=== PATIENT | male | born 1985 | race Caucasian/White ===

== ENCOUNTER 2022-06-04 20:14 | Observation (INO) | payer BC, MEDICAID, SELFPAY ==
[2022-06-04 20:42] VITALS: BP 158/90; PULSE 104; RESP 17; TEMP 37; O2SAT 94
--- NOTE | 2022-06-04 23:19 | W.ED.ABDPA2 ---
HPI - Abdominal Pain General: Chief Complaint: Abdominal Pain Stated Complaint: Right Side Pain Extreme Time Seen by Provider: 06/04/22 23:18 History of Present Illness: 37-year-old male patient comes in today with complaints of right flank pain radiating to the right lower quadrant of his abdomen. Patient reports pain and discomfort started this afternoon. Patient reports no fever. Patient does had episodes of nausea and vomiting. Patient denies any abnormal bowel movements or difficulty of urination. Patient appears in moderate to severe pain. Patient appears nontoxic. Associated Symptoms: Reports nausea and vomiting; Denies fever(s) Review of Systems Const: Denies: fever(s) Resp: Denies: dyspnea GI: Reports: abdominal pain, nausea and vomiting : Reports: flank pain PFS ED PFSH: Medical History (Updated 06/05/22 @ 00:37 by SHAISTA Meade) Autistic disorder Chronic post-traumatic stress disorder Generalized anxiety disorder Major depressive disorder, recurrent episode, moderate with anxious distress Psychiatric care Social History (Updated 11/01/19 @ 13:31 by Grazyna Valente RN) Smoking and tobacco status: never smoked Physical Exam Const: COMMON NORMALS: alert HENMT: COMMON NORMALS: normocephalic HEAD & SCALP: normocephalic THROAT: posterior oropharynx normal Neck/C-Spine: COMMON NORMALS: full ROM Resp: COMMON NORMALS: normal respiratory effort and clear to auscultation bilaterally AUSCULTATION: clear to auscultation bilaterally Cardio: COMMON NORMALS: regular rate and regular rhythm RATE: regular rate RHYTHM: regular rhythm GI: COMMON NORMALS: Soft to palpation AUSCULTATION: Yes normoactive bowel sounds PALPATION: Yes Soft to palpation and Yes Tenderness to palpation present (GI) Details: RLQ : BLADDER/KIDNEY EXAM: Yes CVA tenderness on the right Back/Pelvis: GENERAL BACK: Yes CVA tenderness Extremity: COMMON NORMALS: normal to inspection Neuro: SENSORIUM/ORIENTATION: Yes alert Skin: COMMON NORMALS: turgor normal GENERAL SKIN EXAM: turgor normal Course ED course: 1230, CT report come back positive for an acute appendicitis without perforation. I reviewed this with patient who agreed to plan with me contacting the surgeon at this facility for further evaluation and treatment. I discussed with Dr. Akers who agreed to plan. 1240, discussed patient with Dr. Cheung who agreed to plan for admission. Vital Signs: Vital signs: Vital Signs Temperature 98.6 F 06/04/22 20:42 Pulse Rate 104 H 06/04/22 20:42 Respiratory Rate 17 06/04/22 20:42 Blood Pressure 158/90 06/04/22 20:42 Pulse Oximetry 94 06/04/22 20:42 Oxygen Delivery Me thod 06/04/22 20:42 MDM - Abdominal Pain Medical Decision Making 37-year-old male patient comes in today with complaints of nausea and vomiting with right lower quadrant abdominal pain starting early this morning. Patient reports worsening symptoms throughout the day. Patient's been unable to hold fluids down. Patient appears unwell but not toxic. Abdomen is soft with some periumbilical tenderness, rebound tenderness, and right CVA tenderness. Differential diagnosis includes renal calculi, appendicitis, pyelonephritis. CT of the abdomen pelvis noted an acute appendicitis. Reviewed with Dr. Akers who recommended consult with surgery. Patient was given 3.375 g of Zosyn. And treated with morphine and ketorolac for pain. Patient was also given 1 L of IV fluids and 4 mg of Zofran for nausea and vomiting. Lab Data Labs/Radiology: Radiology Impressions Abdomen/Pelvis CT 06/04/22 23:30 IMPRESSION: Acute appendicitis. No sign of perforation. ADDENDUM: 06/05/22 0027 THIS REPORT CONTAINS FINDINGS THAT MAY BE CRITICAL TO PATIENT CARE. The findings were verbally communicated via telephone conference with MIRIAM NUGENT at 12:26 AM CDT on 06/05/2022. The findings were acknowledged and understood. Discharge Plan Discharge Patient Disposition: Placed in Observation Clinical Impression: Acute appendicitis Coding Level of Care Code ED Survey Technician for Bruce Fwd Exam Comprehensive
--- NOTE | 2022-06-04 23:30 | CTR_ITS ---
PROCEDURE INFORMATION: Exam: CT Abdomen And Pelvis Without Contrast Exam date and time: 06/04/2022 11:40 PM Age: 37 years old Clinical indication: Abdominal pain; Right; Patient HX: C/O RT flank pain; Additional info: Right flank/abd pain TECHNIQUE: Imaging protocol: Computed tomography of the abdomen and pelvis without contrast. Radiation optimization: All CT scans at this facility use at least one of these dose optimization techniques: automated exposure control; mA and/or kV adjustment per patient size (includes targeted exams where dose is matched to clinical indication); or iterative reconstruction. COMPARISON: No relevant prior studies available. RADIATION DOSE METRICS: Total DLP (mGy-cm): 1067.33 FINDINGS: Lungs: Lung bases are clear. Liver: The liver is normal. Gallbladder and bile ducts: There is high attenuation material within the gallbladder lumen consistent with sludge. There is no intrahepatic or extrahepatic bile duct dilation. Pancreas: The pancreas is unremarkable. Spleen: The spleen is unremarkable. Adrenal glands: The adrenal glands are unremarkable. Kidneys and ureters: The kidneys are unremarkable. No hydronephrosis or stones. No ureteral dilation. Stomach and bowel: The stomach is decompressed, preventing meaningful evaluation of wall thickness. The small bowel is nondilated. The colon is unremarkable. Appendix: The appendix is dilated and fluid-filled measuring up to 12 mm diameter. There is an appendicolith at the base. There is periappendiceal edema and fascial thickening. There is no extraluminal gas or fluid collection. Intraperitoneal space: There is no free air or significant intraperitoneal free fluid. Vasculature: The aorta is unremarkable. There is no aneurysm. Lymph nodes: There is no lymphadenopathy in the retroperitoneum, mesentery, pelvis or inguinal regions. Urinary bladder: The urinary bladder is unremarkable. Reproductive: The prostate and seminal vesicles are unremarkable. Bones/joints: Bones are unremarkable. Soft tissues: The abdominal wall is intact. CT/CT kidney stone [id number] IMPRESSION: Acute appendicitis. No sign of perforation.
[2022-06-05] VITALS (20 sets, daily range): BP systolic 89–144; BP diastolic 53–87; PULSE 83–124; RESP 16–20; TEMP 36.4–37.4; O2SAT 87–99; BMI 32.1
[2022-06-05] MEDS: ondansetron 2 mg/ML SDV 2 mL 4 MG IVP
[2022-06-05] MEDS: morphine 4 mg/mL SDV 1 mL IVP
[2022-06-05] MEDS: ketorolac 30 mg/mL INJ 15 MG IVP
[2022-06-05] MEDS: sodium chloride 0.9% 1,000 ML 999 ML IV (01:17)
[2022-06-05] MEDS: piperacillin-tazobactam 3.375 GM in sodium chloride 0.9% (plus) 50 ML IV ×2 (01:17→16:52)
[2022-06-05 05:50] LABS: Basophils % 0.2 %; Eosinophils # 0.1 10^3/uL (0.0-0.8); Eosinophils % 0.6 %; Hematocrit 45.6 % (42.0-52.0); Hemoglobin 14.8 g/dL (11.7-16.6); Lymphocytes # 1.6 10^3/uL (0.8-4.8); Lymphocytes % 9.2 %; Mean Corpuscular HGB Conc 32.5 g/dL (30.0-36.0); Mean Corpuscular Hemoglobin 29.3 pg (28.0-34.0); Mean Corpuscular Volume 90.3 fl (80-94); Mean Platelet Volume 10.6 fL (7.4-10.4); Monocytes # 0.8 10^3/uL (0.2-0.9); Monocytes % 4.9 %; Neutrophils # 14.53 10^3/uL (1.8-7.7); Neutrophils % 84.5 %; Nucleated Red Blood Cells % 0 %; Platelet Count 208 10^3/cmm (130-400); Red Blood Count 5.05 10^6/uL (4.1-5.3); Red Cell Distribution Width 13.1 % (12.1-15.1); White Blood Count 17.2 10^3/uL (4.0-10.0)
[2022-06-05 05:50] LABS: Add Urine Microscopic? NO; Charge for UA Resulting for Rev
[2022-06-05 05:53] LABS: Bilirubin Urine Neg (Negative); Blood Urine Neg (Negative); Glucose Urine UA Norm (Normal); Ketones Urine Negative (Negative); Leukocyte Esterase Urine Negative (Negative); Nitrate Urine Negative (Negative); Protein Urine Neg (Negative); Urine Appearance Clear (CLEAR); Urine Color Yellow (Yellow); Urobilinogen Urine Norm (Negative); pH Urine 6 (5-7)
[2022-06-05 05:56] LABS: Alanine Aminotransferase 26 U/L (0-41); Albumin Level 4.4 g/dL (3.5-5.2); Alkaline Phosphatase 75 U/L (40-130); Blood Urea Nitrogen 8 mg/dL (6-20); Calcium 9.4 mg/dL (8.5-10.5); Carbon Dioxide 24 mmol/L (22-29); Chloride 100 mmol/L (98-107); Globulin 2.4 g/dL (1.3-4.6); Glomerular Filtration Rate 84.5 mL/min (90-130); Glucose 101 mg/dL (65-115); Lipase 24 U/L (13-60); Osmolality Calculated 282 mOsm/kg (285-295); Sodium 137 mmol/L (136-145); Total Bilirubin 0.7 mg/dL (0.15-1.2); Total Protein 6.8 g/dL (6.6-8.7)
[2022-06-05 06:03] LABS: Anion Gap 17.6 (5-19); Potassium 4.6 mmol/L (3.5-5.1)
[2022-06-05 06:04] LABS: Aspartate Amino Transferase 23 U/L (0-40)
[2022-06-05] MEDS: HYDROmorphone 1 mg/mL INJ 1 mL IVP (06:08)
--- NOTE | 2022-06-05 07:27 | P.ANESASSM_ITS ---
Pre-Anesthetic Assessment Height/Weight: Temp Pulse Resp BP Pulse Ox O2 Del Method 97.5 F L 107 H 18 138/80 99 06/05/22 03:59 06/05/22 03:59 06/05/22 06:08 06/05/22 05:56 06/05/22 03:59 06/05/22 03:59 Operation Date: 06/05/22 12:05 Proposed Procedures p Laparoscopic Appendectomy(Not Applicable) - Yung Cheung DO Familial anesthetic complications: None Was Beta Drew taken within 24 hours: N/A Was Clonidine taken within 24 hours: N/A Last intake: > 8hrs Social No alcohol and No tobacco Exam alert, oriented x 3, clear to auscultation bilaterally and regular rate & rhythm Airway Mallampati: Class III Dentition: full Neuropsych Anxiety and Depression Anesthetic Plan ASA status: 2 Anesthesia: General Risk of > 500 ml blood loss (7ml/kg in children): No Medications/Allergies Home Medications Medication Instructions Recorded Confirmed Last Taken Type finasteride 1 mg tablet 1 mg PO DAILY 02/01/21 01/30/22 Unknown History bupropion HCl 150 mg 24 hr tablet, 150 mg PO QAM #90 tabs 11/07/21 01/30/22 Unknown Rx extended release (Wellbutrin XL) sertraline 100 mg tablet (Zoloft) 200 mg PO QAM #180 tabs 11/07/21 01/30/22 Unknown Rx Allergies Allergy/AdvReac Type Severity Reaction Status Date / Time No Known Allergies Allergy Verified 11/01/19 13:28 Current Medications Generic Name Dose Route Start Last Admin Trade Name Freq PRN Reason Stop Dose Admin Hydromorphone HCl 1 mg 06/05/22 05:59 06/05/22 06:08 Hydromorphone 1 Mg/Ml Inj 1 Ml IVP 1 mg Q4H PRN Administration PAIN PFSH Anesthesia Medical History (Updated 06/05/22 @ 00:37 by SHAISTA Meade) Autistic disorder Chronic post-traumatic stress disorder Generalized anxiety disorder Major depressive disorder, recurrent episode, moderate with anxious distress Psychiatric care Social History (Updated 11/01/19 @ 13:31 by Grazyna Valente RN) Smoking and tobacco status: never smoked Data Anesthesia : 06/05/22 05:42 06/05/22 05:07 Short CBC 06/05/22 Range/Units 05:42 WBC 17.2 H (4.0-10.0) 10^3/uL Hgb 14.8 (11.7-16.6) g/dL Hct 45.6 (42.0-52.0) % MCV 90.3 (80-94) fl Plt Count 208 (130-400) 10^3/cmm Neut % (Auto) 84.5 % Neut # (Auto) 14.53 H (1.8-7.7) 10^3/uL BMP 06/05/22 05:07 Sodium 137 Potassium 4.6 Chloride 100 Carbon Dioxide 24 BUN 8 Creatinine 1.0 Glucose 101 Calcium 9.4 Liver Function 06/05/22 Range/Units 05:07 Total Bilirubin 0.7 (0.15-1.2) mg/dL AST 23 (0-40) U/L ALT 26 (0-41) U/L Alkaline Phosphatase 75 (40-130) U/L Albumin 4.4 (3.5-5.2) g/dL Urine 06/05/22 Range/Units 05:40 Urine Color Yellow (Yellow) Urine Appearance Clear (CLEAR) Urine pH 6 (5-7) Ur Specific [place] 1.010 (1.005-1.030) Urine Protein Neg (Negative) Urine Glucose (UA) Norm (Normal) Urine Ketones Negative (Negative) Urine Nitrate Negative (Negative) Urine Bilirubin Neg (Negative) Ur Leukocyte Esterase Negative (Negative) Cardiac Studies: No Data to Display
[2022-06-05] MEDS: sodium chloride 0.9% 1,000 ML 30 ML IV (07:38)
--- NOTE | 2022-06-05 08:06 | PM.HP ---
Providers/Chief Complaint Admitting Physician: Yung Cheung DO Primary Care Provider: Jhoan Francisco MD Chief Complaint: Right Side Pain Extreme History of Present Illness Godfrey Vázquez is a 37 year old male presents to the hospital with 1 day history of abdominal pain. He began with sharp periumbilical pain that then moved to the right lower quadrant. The pain does not radiate. Palpation makes the pain worse. Nothing makes pain better. He does report nausea and emesis but denies hematemesis. Denies diarrhea or constipation. Denies hematochezia and/or melena. He does report chills. Review of Systems General: Reports: 10 or more systems reviewed and unremarkable except in HPI and below Medications/Allergies Home Medications Medication Instructions Recorded Confirmed Last Taken Type finasteride 1 mg tablet 1 mg PO DAILY 02/01/21 01/30/22 06/04/22 06:00 History bupropion HCl 150 mg 24 hr tablet, 150 mg PO QAM #90 tabs 11/07/21 06/05/22 06/04/22 06:00 Rx extended release (Wellbutrin XL) sertraline 100 mg tablet (Zoloft) 200 mg PO QAM #180 tabs 11/07/21 06/05/22 06/04/22 06:00 Rx Allergies Allergy/AdvReac Type Severity Reaction Status Date / Time No Known Allergies Allergy Verified 06/05/22 07:30 PFSH Acute PFSH: Medical History Autistic disorder Chronic post-traumatic stress disorder Generalized anxiety disorder Major depressive disorder, recurrent episode, moderate with anxious distress Psychiatric care Social History Smoking and tobacco status: never smoked Vitals/I&O/Wt Last Vital Signs Temp 99.4 F 06/05/22 07:34 Pulse 124 H 06/05/22 07:34 Resp 18 06/05/22 07:34 BP 126/85 06/05/22 07:34 Pulse Ox 93 06/05/22 07:34 O2 Del Method 06/05/22 07:45 06/04/22 06/05/22 06/05/22 22:59 06:59 14:59 Intake Total 1000 / 1000 Balance 1000 / 1000 Weight last 48 hrs Weight 230 lb Physical Exam Narrative: General : Patient is well developed , no acute distress, oriented x3 Head : Normal cephalic, a-traumatic. Ears : Pinnae and external canal are normal. Hearing is normal. Eyes : PERRLA, Sclera and injection are normal. No conjunctival discharge. Nose : Mucous membranes are without erythema. Throat : buccal mucosa is normal, gums are without significant recession or hypertrophy. Lungs : Equal chest rise bilaterally, no use of accessory muscles, trachea is midline. Cor : Rate and rhythm are normal. Abdomen : Soft, ND, tender to palpation right lower quadrant, no g/r/m Extremities : No edema, no cyanosis or clubbing, dorsalis pedis pulses are present bilaterally, non-tender to palpation of calves. Upper extremities are normal bilaterally. Back : non-tender to palpation, no CVA tenderness. Neuro : CN II - XII intact, Upper and lower extremities have equal and full strength Data : 06/05/22 05:42 06/05/22 05:07 A&P Assessment and plan (1) Acute appendicitis: Status: Acute Plan Laparoscopic Appendectomy The risks and benefits of the procedure, including but not limited to, bleeding, infection, scar, numbness, pain, damage to surrounding structures, conversion to an open procedure, were explained to the patient. He is understanding of the risks and wishes to proceed. Attestations Medical Necessity Statement*: Patient will either go home this afternoon or tomorrow morning. Coding Level of Care Code Acute Mold Maintenance Technician for Brcue Escamilla Diagnoses Acute appendicitis K35.80
--- NOTE | 2022-06-05 09:08 | P.OP_ITS ---
Operative Report Date of procedure: June 05, 2022 Pre-op diagnosis: Acute appendicitis Post-op diagnosis: same Procedure done: Laparoscopic appendectomy Specimens removed/disposition: Appendix Surgeon: Dr. Yung Cheung DO Anesthesia: General Estimated blood loss (mL): 5 Complications: None apparent Brief History: Patient presented with acute appendicitis. Laparoscopic appendectomy was indicated. The risks and benefits were explained and documented. Procedure: Patient was wheeled into the operative room and placed on the OR table in a supine position. Abdomen was inspected prepped and draped in usual sterile fashion. Time-out was performed and all present were in agreement. A 15 blade scalp was used to make a stab incision in the left upper quadrant and intra- abdominal insufflation was achieved using a Veress needle. After localizing the tissue incisions were made and a 12 millimeter trocar was placed into the umbilicus as well as a 5mm in the right lower quadrant and a 5 mm in the left lower quadrant . The appendix was identified and was moderately inflamed. I used the Voyant to ligate the mesoappendix at the base. I then used 2 PDS endo- loops to snare the base of the appendix. I then used the Voyant to ligate the appendix distally. The appendix was removed from the abdomen using an Endo- Catch bag through the umbilical incision. I examined the abdomen and no further pathology was identified. Hemostasis was noted. I then closed the umbilical site with a Hong-Yanely and 0 Vicryl suture in a figure of 8 fashion. All ports removed. Skin was washed and dried. Incisions were closed with 4 O Vicryl in a subcuticular interrupted fashion. Skin glue was applied. Patient tolerated the procedure well.
--- NOTE | 2022-06-05 09:44 | SUR.PHASEI ---
0920 PT TO PACU 5 PT SLEEPY WITH ORAL AIRWAY INPLACE, GOOD RESP EFFORT NOTED 8L MASK IN PLACE, PT VERY DIAPHORETIC, ABDOMEN SOFT WITH 3 SITES WITH SKIN GLUE IV TO RT AC AREA #20 WITH NS 600ML UP AT KVO RATE PER GRAVITY, BILAT SCDS ON, MONITOR SR NO ECTOPY, PT ID BAND TO RT WRIST PT ID'D WITH 2 IDENTIFIERS. 0945 PT MORE AWAKE ALERT , PT VERBALLY DENIES PAIN AND NAUSEA, SURGICAL SITES UNCHANGED VSS.
--- NOTE | 2022-06-05 09:54 | SUR.PHASEI ---
0925 PT STABLE, ATTEMPTED TO CALL REPORT TO FLOOR, UNABLE TO SPEAK TO NURSE . PT IS OUT OF PHASE 1, NOW IN HOLDING WAITING TO GIVE REPORT.
--- NOTE | 2022-06-05 10:01 | SUR.PHASEI ---
PT AWAKE ALERT ABDOMEN SOFT ASSESSMENT UNCHANGED, STILL WAITING TO GIVE REPORT TO FLOOR , PT MOTHER IN ROOM
--- NOTE | 2022-06-05 10:27 | SUR.PHASEI ---
PT TO ROOM 273 PER CART PT AWAKE ALERT WALKED TO BED WITH NO ASSIST, AID AND PT MOTHER AT BEDSIDE, PT TALKATIVE AND COOPERATIVE WITH STAFF.
[2022-06-05] MEDS: HYDROcodone-acetaminophen 7.5-325 mg Tablet 1 TAB PO (17:51)
--- NOTE | 2022-06-05 18:50 | ECG_ITS ---
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 Measurements Intervals [place] Rate: 102 P: 39 [place]: 144 QRS: 54 QRSD: 85 T: 14 QT: 322 QTc: 421 Interpretive Statements SINUS TACHYCARDIA No previous ECG available for comparison Electronically Signed On 06-06-2022 14:28:07 CDT by Josue Oscar M.D. [id number]
[2022-06-05 20:02] LABS: Troponin(5th) Baseline 6 ng/L (0-15)
--- NOTE | 2022-06-05 20:51 | ECG_ITS ---
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 Measurements Intervals [place] Rate: 89 P: 44 [place]: 141 QRS: 55 QRSD: 98 T: 20 QT: 335 QTc: 408 Interpretive Statements SINUS RHYTHM Compared to ECG 06/05/2022 19:19:58 Sinus tachycardia no longer present Electronically Signed On 06-06-2022 14:40:02 CDT by Josue Oscar M.D. [id number]
[2022-06-05 21:41] LABS: Troponin 5 2HR 6.94 ng/L (0-15)
[2022-06-05 22:29] LABS: Troponin 5 2HR Delta 0.94 ABS# (0-10)
[2022-06-06] VITALS: BP 129/73; PULSE 87; RESP 17; TEMP 36.8; O2SAT 91
[2022-06-06] MEDS: piperacillin-tazobactam 3.375 GM in sodium chloride 0.9% (plus) 50 ML IV (00:06)
--- NOTE | 2022-06-06 00:52 | ECG_ITS ---
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 Measurements Intervals [place] Rate: 85 P: 44 [place]: 159 QRS: 50 QRSD: 94 T: 25 QT: 346 QTc: 412 Interpretive Statements SINUS RHYTHM Compared to ECG 06/05/2022 20:50:50 No significant changes Electronically Signed On 06-06-2022 14:39:54 CDT by Josue Oscar M.D. [id number]
[2022-06-06 04:00] VITALS: BP 109/66; PULSE 92; RESP 16; TEMP 36.9; O2SAT 98
[2022-06-06 04:21] VITALS: BP 121/64; PULSE 68; RESP 16; TEMP 36.4; O2SAT 98
--- NOTE | 2022-06-06 06:04 | PC.NURSE ---
dr rao notified as requested the results of ekg and trops, patient unable to void at begining of telephone answering service operator but did start voiding and voided a total of 800 for pm shift
[2022-06-06 06:45] LABS: Troponin 5 6HR Delta 0 ng/L (0-12)
[2022-06-06 07:40] VITALS: BP 123/70; PULSE 86; RESP 16; TEMP 37.4; O2SAT 95
--- NOTE | 2022-06-06 08:38 | PM.DCS ---
Discharge Providers Date of Admission: 06/05/22 00:50 Date of Discharge: June 06, 2022 Attending Provider at Admission: Yung Cheung DO Attending Provider at Discharge: Yung Cheung DO Primary Care Provider: Jhoan Francisco MD Diagnoses at Discharge Discharge Diagnosis (1) Acute appendicitis: Status: Acute Reason for Visit Reason for Visit: Right Side Pain Extreme Hospital Course Hospital Course Is a very pleasant 37-year-old male who came in with acute appendicitis. He underwent laparoscopic appendectomy. Postoperatively he had some tachycardia but otherwise did well. He was discharged home in good condition. Physical Exam Narrative: General : Patient is well developed , no acute distress, oriented x3 Head : Normal cephalic, a-traumatic. Ears : Pinnae and external canal are normal. Hearing is normal. Eyes : PERRLA, Sclera and injection are normal. No conjunctival discharge. Nose : Mucous membranes are without erythema. Throat : buccal mucosa is normal, gums are without significant recession or hypertrophy. Lungs : Equal chest rise bilaterally, no use of accessory muscles, trachea is midline. Cor : Rate and rhythm are normal. Abdomen : Soft, ND, appropriately tender, no g/r/m Incisions intact without erythema or exudate Extremities : No edema, no cyanosis or clubbing, dorsalis pedis pulses are present bilaterally, non-tender to palpation of calves. Upper extremities are normal bilaterally. Back : non-tender to palpation, no CVA tenderness. Neuro : CN II - XII intact, Upper and lower extremities have equal and full strength Discharge Data Studies Completed and Pending Completed Studies During Hospitalization Category Date Time Status CT abdomen renal stone [CT kidney stone [id number]] Stat Cat Scan 06/04/22 23:30 Completed Pending at discharge Category Date Time Status Pathology: Surgical [PTH] Routine Pth 06/05/22 09:08 Received Radiology Impressions Abdomen/Pelvis CT 06/04/22 23:30 IMPRESSION: Acute appendicitis. No sign of perforation. ADDENDUM: 06/05/22 0027 THIS REPORT CONTAINS FINDINGS THAT MAY BE CRITICAL TO PATIENT CARE. The findings were verbally communicated via telephone conference with MIRIAM NUGENT at 12:26 AM CDT on 06/05/2022. The findings were acknowledged and understood. Laboratory Results WBC 17.2 10^3/uL (4.0-10.0) H 06/05/22 05:42 RBC 5.05 10^6/uL (4.1-5.3) 06/05/22 05:42 Hgb 14.8 g/dL (11.7-16.6) 06/05/22 05:42 Hct 45.6 % (42.0-52.0) 06/05/22 05:42 MCV 90.3 fl (80-94) 06/05/22 05:42 MCH 29.3 pg (28.0-34.0) 06/05/22 05:42 MCHC 32.5 g/dL (30.0-36.0) 06/05/22 05:42 RDW 13.1 % (12.1-15.1) 06/05/22 05:42 Plt Count 208 10^3/cmm (130-400) 06/05/22 05:42 MPV 10.6 fL (7.4-10.4) H 06/05/22 05:42 Neut % (Auto) 84.5 % 06/05/22 05:42 Lymph % (Auto) 9.2 % 06/05/22 05:42 [place] % (Auto) 4.9 % 06/05/22 05:42 Eos % (Auto) 0.6 % 06/05/22 05:42 Baso % (Auto) 0.2 % 06/05/22 05:42 Neut # (Auto) 14.53 10^3/uL (1.8-7.7) H 06/05/22 05:42 Lymph # (Auto) 1.6 10^3/uL (0.8-4.8) 06/05/22 05:42 [place] # (Auto) 0.8 10^3/uL (0.2-0.9) 06/05/22 05:42 Eos # (Auto) 0.1 10^3/uL (0.0-0.8) 06/05/22 05:42 Baso # (Auto) 0.0 10^3/uL (0.0-0.1) 06/05/22 05:42 Nucleated RBC % (auto) 0 % 06/05/22 05:42 Nucleated RBCs # 0.0 /100WBC 06/05/22 05:42 Sodium 137 mmol/L (136-145) 06/05/22 05:07 Potassium 4.6 mmol/L (3.5-5.1) 06/05/22 05:07 Chloride 100 mmol/L (98-107) 06/05/22 05:07 Carbon Dioxide 24 mmol/L (22-29) 06/05/22 05:07 Anion Gap 17.6 (5-19) 06/05/22 05:07 BUN 8 mg/dL (6-20) 06/05/22 05:07 Creatinine 1.0 mg/dL (0.7-1.2) 06/05/22 05:07 GFR Calculation 84.5 mL/min (90-130) L 06/05/22 05:07 Glucose 101 mg/dL (65-115) 06/05/22 05:07 Calculated Osmolality 282 mOsm/kg (285-295) L 06/05/22 05:07 Calcium 9.4 mg/dL (8.5-10.5) 06/05/22 05:07 Total Bilirubin 0.7 mg/dL (0.15-1.2) 06/05/22 05:07 AST 23 U/L (0-40) 06/05/22 05:07 ALT 26 U/L (0-41) 06/05/22 05:07 Alkaline Phosphatase 75 U/L (40-130) 06/05/22 05:07 Troponin T Baseline 6 ng/L (0-15) 06/05/22 19:24 Troponin T 120 Minute 6.94 ng/L (0-15) 06/05/22 21:12 Delta Troponin T 0.94 ABS# (0-10) 06/05/22 21:12 Troponin T Hi Sens 6Hr 6.00 ng/L (0-15) 06/06/22 04:14 Troponin T Hi Sens 6Hr Delta 0 ng/L (0-12) 06/06/22 04:14 Total Protein 6.8 g/dL (6.6-8.7) 06/05/22 05:07 Albumin 4.4 g/dL (3.5-5.2) 06/05/22 05:07 Globulin 2.4 g/dL (1.3-4.6) 06/05/22 05:07 Lipase 24 U/L (13-60) 06/05/22 05:07 Urine Color Yellow (Yellow) 06/05/22 05:40 Urine Appearance Clear (CLEAR) 06/05/22 05:40 Urine pH 6 (5-7) 06/05/22 05:40 Ur Specific [place] 1.010 (1.005-1.030) 06/05/22 05:40 Urine Protein Neg (Negative) 06/05/22 05:40 Urine Glucose (UA) Norm (Normal) 06/05/22 05:40 Urine Ketones Negative (Negative) 06/05/22 05:40 Urine Blood Neg (Negative) 06/05/22 05:40 Urine Nitrate Negative (Negative) 06/05/22 05:40 Urine Bilirubin Neg (Negative) 06/05/22 05:40 Urine Urobilinogen Norm mg/dL (Negative) 06/05/22 05:40 Ur Leukocyte Esterase Negative (Negative) 06/05/22 05:40 Procedures Performed Laparoscopic appendectomy Vitals Last Vital Signs Temp 99.3 F 06/06/22 07:40 Pulse 86 06/06/22 07:40 Resp 16 06/06/22 07:40 BP 123/70 06/06/22 07:40 Pulse Ox 95 06/06/22 07:40 O2 Del Method 06/06/22 07:40 O2 Flow Rate 3 06/06/22 04:21 Discharge Plan Discharge Patient Disposition: Home Condition: Stable Prescriptions: New amoxicillin-pot clavulanate 875-125 mg tablet 1 tab PO BID Qty: 24 0RF hydrocodone-acetaminophen 7.5-325 mg tablet 1 tab PO Q6H PRN (Reason: pain) Qty: 20 0RF Continued finasteride 1 mg tablet 1 mg PO DAILY bupropion HCl [Wellbutrin XL] 150 mg tablet extended release 24 hr 150 mg PO QAM Qty: 90 2RF Rx Instructions: Take one tablet every morning sertraline [Zoloft] 100 mg tablet 200 mg PO QAM Qty: 180 2RF Rx Instructions: Take two tablets every morning Vitamin C 500 mg Tablet 500 mg PO DAILY zinc 50 mg Tablet 50 mg PO DAILY vitamin D23-tiqhh acid 0.5-1 mg Tablet 1 tab PO DAILY Discharge Orders: Discharge Order (Routine); Ordered 06/06/22 Ordered By: Yung Cheung Referrals: Yung Cheung DO [Physician] - 2 weeks Jhoan Francisco MD [Primary Care Provider] - 4-7 days Discharge Diet: Advance as tolerated Discharge Activity: Resume usual activity Patient Instructions: Appendicitis (GEN), Opioid Safety, Post Anesthesia Care Activity Restrictions/Additional Instructions: Do not soak incisions underwater for 2 weeks. Shower daily Discharge Attestations Time Spent in Discharge Care*: less than 30 min Quality Metrics Clinical Quality Measures [ No reported AMI, CVA or VTE this stay] Coding Level of Care Code Acute Chg FW DC note Diagnoses Acute appendicitis K35.80
== END 2022-06-06 10:38 | disposition home or self-care (01) ==
LOC: ER 06-05 00:45 → MEDSURG 06-05 01:13
PROVIDERS: Emergency Medicine; Admitting Provider Surgery; Emergency Provider Nurse Practitioner Family; PCP Family Medicine; Visit Provider Surgery
PROC: 0DTJ4ZZ Resection of Appendix, Percutaneous Endoscopic Approach (ICD-10-PCS; CPT 44970; principal; 2022-06-05 11:55)
DX: K35.80 Unspecified acute appendicitis (principal)
CPT/HCPCS: 44970; 36415; 51798; 74176; 80053; 81003; 83690; 84484; 85025; 88304; 93005; 96365; 96366; 96375; 99285; G0378; J1100; J1170; J1885; J2270; J2405; J2543; J2704; J2710; J3010; J3490; J7030

== ENCOUNTER → 2025-01-23 09:28 | Outpatient (BNVA) | payer BC, SELFPAY | PROVIDERS: PCP Family Medicine; Visit Provider Family Medicine | DX: Z13.6 Encounter for screening for cardiovascular disorders (principal) | CPT/HCPCS: 80053; 80061; 83721; 84439; 84443; 85025 ==